=== PATIENT | female | born 1965 | race Caucasian/White ===

== ENCOUNTER 2025-01-06 11:02 | Emergency (ER) | payer BC, SELFPAY ==
[2025-01-06 11:02] VITALS: BMI 22.9
[2025-01-06 11:05] VITALS: BP 176/101
[2025-01-06 11:27] LABS: Hematocrit 45.0 % (37.0-47.0); Hemoglobin 14.7 g/dL (12.0-16.0); Mean Corp Hgb Conc. 32.7 g/dL (33.0-37.0); Mean Corpuscular Volume 95.3 fL (81.0-99.0); Nucleated Red Blood Cells % 0 %; Platelet Count 188 10^3/uL (130-400); Red Cell Dist. Width 12.1 % (11.5-14.5)
[2025-01-06 11:55] LABS: Troponin I < 0.012 ng/ml
[2025-01-06 12:05] VITALS: BP 139/73
[2025-01-06 12:29] LABS: ALT (SGPT) 39 U/L (0-35); AST (SGOT) 41 U/L (14-36); Albumin 4.6 g/dl (3.5-5.0); Alkaline Phosphatase 50 U/L (38-126); Blood Urea Nitrogen 15 mg/dl (7-17); Calcium 9.0 mg/dl (8.4-10.2); Carbon Dioxide 24 mmol/L (22-30); Glucose 113 mg/dl (70-99); Lipase 169 U/L (23-300); Total Protein 7.2 g/dl (6.3-8.2); eGFR > 60.00
[2025-01-06 12:33] LABS: Chloride 108 mmol/L (98-107); Potassium 3.9 mmol/L (3.5-5.1); Sodium 138 mmol/L (135-145)
[2025-01-06 13:00] VITALS: BP 124/62
--- NOTE | 2025-01-06 13:12 | ED.GENMED ---
History of Present Illness
General
Chief Complaint: Abdominal Pain
Source: patient
Time Seen by Provider: 01/06/25 13:01
History of Present Illness
History of Present Illness:
59-year-old female presents to the emergency room complaining of 2 episodes of upper abdominal pain over the past 24 hours. Last evening the patient developed what she describes as severe cramping in her upper abdomen. She started just under her
xiphoid and radiated to both sides of her upper abdomen. She maybe felt a little nauseous but did not have any vomiting. She had another episode today which was associated with feeling of lightheadedness. No diaphoresis. No shortness of breath.
Pain does not radiate anywhere. No exertional symptoms. Patient has a history of breast cancer for which she had a double mastectomy in 2022. She did not require any chemo or radiation. Surveillance imaging has been clear.
Phy Exam
Physical Exam
Physical Exam:
General: Awake, Alert, Oriented X3. No acute distress.
Vitals: unremarkable
Head: Atraumatic
Eyes: Pupils equal, EOMI
Throat: Airway intact, no exudates
Neck: Trachea midline
Lungs: Clear and equal b/l
Heart: Regular rate, no murmurs
Abd: Soft, mild tenderness right upper quadrant and epigastric, No pulsatile mass
Neuro: Nonfocal
Skin: Warm, dry, no rash
Extremities: pulses equal b/l, no edema
Course
Orders/Labs/Results
Orders:
Orders
01/06/25 11:03
EKG [Electrocardiogram (*1)] Urgent
Reason for Study: Abdominal Pain
01/06/25 11:04
EKG- Treatment ONCE
01/06/25 11:21
Complete Blood Count/With Diff Urgent
Comprehensive Metabolic Panel Urgent
Lipase Urgent
Troponin I Urgent
01/06/25 13:12
US Abdomen Complete/Upper Urgent
Comment:
Reason For Exam: upper abd pain
Abnormal Lab Results
01/06/25
11:21
MCH 31.1 H pg
(27.0-31.0)
MCHC 32.7 L g/dL
(33.0-37.0)
Chloride 108 H mmol/L
(98-107)
Glucose 113 H mg/dl
(70-99)
AST 41 H U/L
(14-36)
ALT 39 H U/L
(0-35)
01/06/25 11:21
01/06/25 11:21
Vital Signs
Initial and Last Documented VS:
Initial Vital Signs
Temp Pulse Resp BP Pulse Ox
98.3 F 115 22 176/101 99
01/06/25 11:05 01/06/25 11:05 01/06/25 11:05 01/06/25 11:05 01/06/25 11:05
Last Documented Vital Signs
Temp Pulse Resp BP Pulse Ox
98.2 F 62 23 124/62 98
01/06/25 12:00 01/06/25 14:30 01/06/25 13:15 01/06/25 13:00 01/06/25 13:15
MDM/Problems Addressed
Differential Diagnosis Includes:
Biliary colic, gastritis, GERD, angina
MDM/Problems Addressed:
Patient presents with epigastric discomfort. Patient denies pain with exertion. EKG here is unremarkable. Troponin is normal. Labs show very mild elevation of her LFTs. Ultrasound shows no gallbladder inflammation or gallstones. Still suspect
biliary colic is the most likely cause. Patient given contact information for general surgeon to follow-up with. Also help with a primary care doctor. Possible the patient could also be experiencing GERD. Will recommend a course of
[id number] Prilosec or similar medication. Return for fever worsening symptoms.
*Radiology
Radiology exam reviewed: radiology read reviewed
*Pulse Oximetry
SaO2: 97
Oxygen Mode of Delivery: Room air
Patient hypoxic: no
*EKG
Interpreted by ED Provider?: Yes
Heart Rate: 87
Rate: normal
Rhythm: sinus
[place]: normal axis
Interval: normal interval
QRS Pattern: normal QRS
Ischemia: no ischemia
*Geophysical E Logger Interpretation
Rate: normal
Interpretation: normal
Rhythm: sinus
*Critical Care Note
Total Time (30-74mins, 75-104mins- exclusive of procedures): Not Applicable
ED Attending Note
-
Portions of this chart may have been created with voice recognition software.� Occasional wrong word or��sound alike� substitutions may have occurred due to the inherent limitations of voice recognition software.
Discharge Plan
Departure
Patient Disposition: Home (Routine Discharge)
Date of Disposition: 01/06/25
Time of Disposition: 15:41
Patient with high blood pressure during this ER visit?: No
Condition: Good
Discharge Problem:
Abdominal pain
Instructions: Abdominal Pain
Referrals:
Tiffanie Haskins MD [Family Provider, Internal Medicine]
Activity Restrictions/Additional Instructions:
I suspect your abdominal pain is related to reflux or perhaps biliary colic. I would start a course of Prilosec OTC for 1 month. Make appoint with your primary care doctor. Have also given you contact information for general surgeon who you can
make an appointment with if the pain recurs.
Interventions
Interventions:
*Risk Screen - Suicide Last Done: 01/06/25 11:05
*General Assessment Last Done: 01/06/25 11:05
*Neglect/Abuse Screening Last Done: 01/06/25 11:05
*ED- Fall Risk Assessment Last Done: 01/06/25 12:42
*ED COVID-19 Vaccine History Last Done: 01/06/25 12:42
OP-Cmyorr-Jpzlkqrtbk Assessment Last Done: 01/06/25 12:42
Discharge Date and Time
Print Language: [id number]
[2025-01-06 16:20] VITALS: BP 133/80
== END 2025-01-06 16:21 | disposition home or self-care (01) ==
LOC: EMR 11:02
PROVIDERS: Student in an Organized Health Care Education/Training Program; EMERGENCY PHYSICIAN Emergency Medicine; FAMILY PHYSICIAN Internal Medicine
DX: R10.10 Upper abdominal pain, unspecified (principal); R42 Dizziness and giddiness; R11.0 Nausea; Z85.3 Personal history of malignant neoplasm of breast; Z90.13 Acquired absence of bilateral breasts and nipples
CPT/HCPCS: 99284; 76700; 80053; 83690; 84484; 85025; 93005